=== PATIENT | female | born 1950 | race Caucasian/White ===

== ENCOUNTER 2018-10-17 11:40 | Emergency (ER) | payer MEDICARE, BC ==
--- NOTE | 2018-10-17 12:01 | Emergency Department Record ---
History of Present Illness - General Chief Complaint: General Stated Complaint: POST OP BLEED Time Seen by Provider: 10/17/18 11:51 Source: Patient, Family Mode of Arrival: Ambulatory Limitations: No limitations - History of Present Illness Initial comments: The patient is here due to having a R TKA yesterday at [facility] and was discharged today. When she got home the knee wound began bleeding from the mid portion of the wound and bled down the front of the leg. She denies any pain, fever, or any new issues. The patient denies being on blood thinners. Onset/Timin -: Hour(s) - Related Data Home Medications Medication Instructions Recorded Confirmed Last Taken Alprazolam 0.5 mg PO DAILY 10/17/18 10/17/18 Unknown Amlodipine Besylate [Norvasc] 5 mg PO DAILY 10/17/18 10/17/18 Unknown Escitalopram Oxalate [Lexapro] 10 mg PO DAILY 10/17/18 10/17/18 Unknown Hydrocodone/Acetaminophen [[place] 1 each PO Q6H 10/17/18 10/17/18 Unknown 5-325 Tablet] Spironolactone [Aldactone] 25 mg PO DAILY 10/17/18 10/17/18 Unknown Tizanidine HCl [Zanaflex] 4 mg PO DAILY 10/17/18 10/17/18 Unknown Allergies Allergy/AdvReac Type Severity Reaction Status Date / Time cefdinir [From Omnicef] AdvReac Mild ARM Unverified 09/21/15 10:41 NUMBNESS erythromycin base AdvReac Mild ARM Unverified 09/21/15 10:41 NUMBNESS levofloxacin [From Levaquin] AdvReac Mild ARM Unverified 09/21/15 10:41 NUMBNESS Penicillins AdvReac Mild ARM Unverified 09/21/15 10:41 NUMBNESS Sulfa (Sulfonamide AdvReac Mild ARM Unverified 09/21/15 10:41 Antibiotics) NUMBNESS Travel Screening - Travel/Exposure Within Last 30 Days Have you traveled within the last 30 days?: No Review of Systems Constitutional: Denies: Chills, Fever Eyes: Denies: Eye discharge ENT: Denies: Congestion Respiratory: Denies: Cough, Dyspnea Past Medical History - SOCIAL HISTORY Smoking Status: Current every day smoker Alcohol Use: None Drug Use: None - RESPIRATORY Hx Respiratory Disorders: No - CARDIOVASCULAR Hx Cardio Disorders: Yes Hx Irregular Heartbeat: Yes (afib) - NEURO Hx Neuro Disorders: No - GI Hx GI Disorders: No - Hx Genitourinary Disorders: No - ENDOCRINE Hx Endocrine Disorders: No - MUSCULOSKELETAL Hx Musculoskeletal Disorders: Yes Hx Arthritis: Yes Comment:: Lupus - PSYCH Hx Psych Problems: No - HEMATOLOGY/ONCOLOGY Hx Hematology/Oncology Disorders: No Family Medical History Any Significant Family History?: No Physical Exam - General General Appearance: Alert, Cooperative, No acute distress - Head Head exam: Atraumatic, Normocephalic - Eye Eye exam: Normal appearance, PERRL - Extremities Extremities exam: Joint swelling. negative: Normal inspection (There is an anterior R knee wound that is well approximated with a bandage in place. There is a punctate area of bleeding in the mid portion of the wound. There is no active bleeding, swelling, or erythema.), Full ROM, Tenderness Course Vital Signs 10/17/18 11:51 Temperature 97.9 F Pulse Rate [ 80 Pulse Ox Probe] Respiratory 20 Rate Blood Pressure 164/57 [Left Arm] Pulse Ox 95 - Reevaluation(s) Reevaluation #1: I did discuss the case with Dr. Wadsworth's PA and she does agree to the plan to keep a bandage in place for 2 days. She is to contact the office for any problems. 10/17/18 12:41 Disposition Disposition: Discharge Clinical Impression: Post-op bleeding Qualifiers: Surgical complication system/body Area: subcutaneous tissue Procedure type: dermatologic Qualified Code(s): L76.21 - Postprocedural hemorrhage of skin and subcutaneous tissue following a dermatologic procedure Disposition: Home, Self-Care Condition: (2) Stable Instructions: Acute Wound Care (ED) Additional Instructions: Please keep the bandage in place for [address] Wadsworth for any problems. Forms: Patient Portal Access Time of Disposition: 12:40 Quality - Quality Measures Quality Measures: N/A - Blood Pressure Screening View Details: Yes Does Patient Have Any of the Following: No Blood Pressure Classification: Hypertensive Reading Systolic Measurement: 164 Diastolic Measurement: 57 Screening for High Blood Pressure: < First Hypertensive BP, F/U Documented > [ G8950] First Hypertensive Follow-up Interventions: Referral to alternative/primary care provider.
== END 2018-10-17 12:55 | disposition home or self-care (01) ==
LOC: ER 11:40
DX: M96.830 Postprocedural hemorrhage of a musculoskeletal structure following a musculoskeletal system procedure (principal); Y65.8 Other specified misadventures during surgical and medical care; Y79.2 Prosthetic and other implants, materials and accessory orthopedic devices associated with adverse incidents; I48.91 Unspecified atrial fibrillation; F17.210 Nicotine dependence, cigarettes, uncomplicated
CPT/HCPCS: 99283

== ENCOUNTER 2018-10-26 15:04 | Inpatient (IN) | payer MEDICARE, BC ==
[2018-10-26] MEDS ORDERED: 0.9 % SODIUM CHLORIDE 1,000 ML BAG IV ONE (15:12)
[2018-10-26] MEDS ORDERED: ONDANSETRON HCL IV 4 MG/2 ML VIAL IVP ONE (15:12)
--- NOTE | 2018-10-26 15:17 | Emergency Department Record ---
History of Present Illness - General Chief complaint: Vomiting Stated complaint: CANT EAT,VOMITING Time Seen by Provider: 10/26/18 15:06 Source: Patient, Family Mode of Arrival: Ambulatory Limitations: No limitations - History of Present Illness Initial comments: 68 yo female presents with 7 days of not feeling well. Last Saturday she developed nausea. About three days ago she stated having vomiting with the nausea. She reports at this point she vomits even when she takes her medications. She has had one episode of diarrhea each of the last three days. She denies any fever. No severe abdominal pain. At times she has a due ache in the suprapubic area. She had knee replacement surgery last week. [facility] and told she might have a UTI. She was started on Nitrofurantoin MD complaint: Abdominal pain, Diarrhea, Nausea, Vomiting -: Week(s) (1) Description of Vomiting: Watery Description of Diarrhea: Other (dark) Associated Abdominal Pain: No Location: Other (No pain) Radiation: None Severity: Mild Quality: Other (no pain) Improves with: None Worsens with: Eating Context: Other Associated Symptoms: Loss of appetite, Nausea/vomiting - Related Data Home Medications Medication Instructions Recorded Confirmed Last Taken Apixaban [Eliquis] 5 mg PO BID 10/26/18 10/26/18 Unknown Azathioprine [Imuran] 50 mg PO BID 10/26/18 10/27/18 Unknown Benazepril HCl [Lotensin] 10 mg PO DAILY 10/26/18 10/26/18 Unknown Bupropion HCl 100 mg PO DAILY 10/26/18 10/27/18 Unknown Fluticasone/Salmeterol [Advair 1 each IH BID 10/26/18 10/26/18 Unknown 100-50 Diskus] Hydroxychloroquine Sulfate 200 mg PO BID 10/26/18 10/26/18 Unknown [Plaquenil] Montelukast Sodium [Singulair] 10 mg PO QHS 10/26/18 10/26/18 Unknown Nitrofurantoin Macrocrystal 100 mg PO BID 10/26/18 10/26/18 Unknown [Macrodantin] Amlodipine Besylate 5 mg PO DAILY 10/27/18 10/27/18 Unknown Metoprolol Succinate [Toprol Xl] 100 mg PO DAILY 10/27/18 10/27/18 Unknown Olmesartan/Hydrochlorothiazide 1 each PO DAILY 10/27/18 10/27/18 Unknown [Olmesartan-Hctz 40-12.5 mg Tab] Spironolactone 25 mg PO DAILY 10/27/18 10/27/18 Unknown Allergies Allergy/AdvReac Type Severity Reaction Status Date / Time cefdinir [From Omnicef] AdvReac Mild ARM Unverified 09/21/15 10:41 NUMBNESS erythromycin base AdvReac Mild ARM Unverified 09/21/15 10:41 NUMBNESS levofloxacin [From Levaquin] AdvReac Mild ARM Unverified 09/21/15 10:41 NUMBNESS Penicillins AdvReac Mild ARM Unverified 09/21/15 10:41 NUMBNESS Sulfa (Sulfonamide AdvReac Mild ARM Unverified 09/21/15 10:41 Antibiotics) NUMBNESS Review of Systems Constitutional: Reports: Malaise. Denies: Chills, Fever Eyes: Denies: Eye discharge, Eye pain, Photophobia, Vision change ENT: Denies: Congestion, Throat pain Respiratory: Denies: Cough, Dyspnea, Hemoptysis, Stridor, Wheezes Cardiovascular: Denies: Chest pain, Palpitations, Syncope Endocrine: Reports: Fatigue. Denies: Heat or cold intolerance, Polydipsia, Polyuria Gastrointestinal: Reports: Abdominal pain (mild suprapubic), Diarrhea, Nausea, Vomiting. Denies: Constipation, Hematemesis, Hematochezia, Melena Genitourinary: Denies: Dysuria, Urgency Musculoskeletal: Reports: Arthralgia (healing well without significant knee pain from surgery). Denies: Back pain, Joint swelling, Myalgia Neurological: Denies: Numbness, Weakness Psychiatric: Denies: Anxiety Hematological/Lymphatic: Denies: Easy bleeding, Easy bruising Past Medical History - SOCIAL HISTORY Smoking Status: Current every day smoker Drug Use: None - RESPIRATORY Hx Respiratory Disorders: No - CARDIOVASCULAR Hx Cardio Disorders: Yes Hx Irregular Heartbeat: Yes (afib) - NEURO Hx Neuro Disorders: No - GI Hx GI Disorders: No - Hx Genitourinary Disorders: No - ENDOCRINE Hx Endocrine Disorders: No - MUSCULOSKELETAL Hx Musculoskeletal Disorders: Yes Hx Arthritis: Yes Comment:: Lupus - PSYCH Hx Psych Problems: No - HEMATOLOGY/ONCOLOGY Hx Hematology/Oncology Disorders: No Physical Exam - General General Appearance: Alert, Oriented x3, Cooperative, No acute distress Limitations: No limitations - Head Head exam: Atraumatic, Normal inspection - Eye Eye exam: Normal appearance. negative: Conjunctival injection, Scleral icterus - ENT ENT exam: Normal exam, Mucous membranes moist Ear exam: Normal external inspection Nasal Exam: Normal inspection Mouth exam: Normal external inspection - Neck Neck exam: Normal inspection. negative: Lymphadenopathy - Respiratory Respiratory exam: Normal lung sounds bilaterally. negative: Respiratory distress - Cardiovascular Cardiovascular Exam: Regular rate, Normal rhythm, Normal heart sounds - GI/Abdominal GI/Abdominal exam: Soft, Normal bowel sounds, Other (very soft and non tender). negative: Distended, Guarding, Rebound, Rigid, Tenderness - Rectal Rectal exam: Deferred - exam: Deferred - Extremities Extremities exam: negative: Pedal edema - Back Back exam: Denies: CVA tenderness (R), CVA tenderness (L) - Neurological Neurological exam: Alert, Oriented X3 - Psychiatric Psychiatric exam: Normal affect, Normal mood - Skin Skin exam: Dry, Intact, Normal color, Warm Course - Reevaluation(s) Reevaluation #1: 10/26/18 15:38 The CBC was reviewed WBC is 19.7 10/26/18 15:48 The CMP was reviewed The CR is normal The HCO3 is 21 The Lipase is 93 10/26/18 17:[address] scan result was reviewed. The findings suggest duodenitis or PUD. No other acute process. Pulmonary nodules recommend follow up in one year and Left ovarian cyst with recommend Ultrasound in one year. This was discussed with the patient regarding the need to follow up No vomiting in the ED to this point 10/26/18 17:23 The UA is completely negative without signs of infection 10/26/18 18:18 No vomiting or diarrhea in the ED to this point. The lab called with a late entry sodium level Her Na is 116. She will be admitted for hyponatremia, vomiting 10/26/18 18:29 The admission was discussed with Cha Fulton NP regarding the NV, hyponatremia 10/26/18 18:36 Medical Decision Making - Lab Data Result diagrams: 10/26/18 15:15 10/27/18 06:25 Disposition Disposition: Admit Clinical Impression: Duodenitis, Hyponatremia, Vomiting, Diarrhea Abdominal pain Qualifiers: Abdominal location: unspecified location Qualified Code(s): R10.9 - Unspecified abdominal pain Disposition: Still a Patient at [facility] Decision to Admit: Admit from ER Decision to Admit Date: 10/26/18 Decision to Admit Time: 18:31 Condition: (1) Good Time of Disposition: 18:31 Quality - Quality Measures Quality Measures: N/A - Blood Pressure Screening Does Patient Have Any of the Following: Active Dx of HTN Blood Pressure Classification: Hypertensive Reading Systolic Measurement: 133 Diastolic Measurement: 99 Screening for High Blood Pressure: Patient Exclusion, Hx of HTN [G9744]
[2018-10-26 15:26] LABS: HEMATOCRIT 33.5 % (35.0-47.0); HEMOGLOBIN 12.4 gm/dl (11.6-16.0); MEAN CELL VOLUME 94.1 fl (81-97); MEAN CORPUSCULAR HEMOGLOBIN 34.8 pg (27-33); MEAN PLATELET VOLUME 8.4 fl (7.4-10.4); PLATELET COUNT 477 K/uL (130-400); RED BLOOD COUNT 3.56 M/uL (3.80-5.40); RED CELL DISTRIBUTION WIDTH 13.1 % (11.5-14.5); WHITE BLOOD COUNT W/O DIFF 19.7 K/uL (4.2-12.2)
[2018-10-26 15:36] LABS: BLOOD UREA NITROGEN 22 mg/dL (8-23); CREATININE 0.9 mg/dL (0.5-0.9); EST GLOMERULAR FILTRATION RATE > 60 mL/min
[2018-10-26 15:37] LABS: LIPASE 93 U/L (13-60); TOTAL PROTEIN 8.2 g/dL (6.6-8.7)
[2018-10-26] MEDS ORDERED: 0.9 % SODIUM CHLORIDE 1000ML 1,000 ML IV ONE (15:38)
[2018-10-26 15:39] LABS: GLUCOSE,RANDOM 105 mg/dL (74-109)
[2018-10-26 15:41] LABS: ALB/GLOB RATIO 1.1 (1.1-1.8); ALBUMIN 4.3 g/dL (4.0-5.0); ALKALINE PHOSPHATASE 61 U/L (35-104); ALT/SGPT 41 U/L (<33); AST/SGOT 35 U/L (10.0-35.0)
[2018-10-26 16:53] LABS: URINE APPEARANCE CLEAR; URINE BILIRUBIN NEGATIVE (NEGATIVE); URINE BLOOD TRACE-I (NEGATIVE); URINE COLOR YELLOW; URINE GLUCOSE (UA) NEGATIVE (NEGATIVE); URINE KETONE TRACE (NEGATIVE); URINE LEUKOCYTE ESTERASE NEGATIVE (NEGATIVE); URINE NITRITE NEGATIVE (NEGATIVE); URINE PROTEIN NEGATIVE (NEGATIVE); URINE UROBILINOGEN 0.2 E.U./dL (0.20 - 1.00)
[2018-10-26 17:07] LABS: URINE EPITHELIAL CELLS 0 - 2 (FEW); URINE RBC 0 - 2 (NONE SEEN); URINE WBC 0 - 2 (0-2/hpf)
[2018-10-26] MEDS ORDERED: PANTOPRAZOLE SODIUM IV 40 MG VIAL IVP ONE (17:35)
[2018-10-26] MEDS ORDERED: MORPHINE SULFATE 10 MG/ML VIAL IVP ONE ×2 (17:35→18:22)
[2018-10-26] MEDS ORDERED: ONDANSETRON HCL IV 4 MG/2 ML VIAL IVP PRN (19:58)
[2018-10-26] MEDS ORDERED: DIPHENHYDRAMINE HCL 25 MG CAPSULE PO PRN (20:46)
[2018-10-26] MEDS: 0.9 % SODIUM CHLORIDE 1000ML 1,000 ML IV PRN (20:57)
[2018-10-26] MEDS: MONTELUKAST SODIUM 10MG TABLET PO SCH (21:53)
[2018-10-26] MEDS ORDERED: METOPROLOL TART 50 MG TABLET PO SCH (22:00)
[2018-10-26] MEDS: IBUPROFEN 400 MG TABLET PO PRN (23:24)
[2018-10-27] MEDS: MORPHINE SULFATE 10 MG/ML VIAL IVP PRN ×2 (00:52→07:49)
[2018-10-27 06:57] LABS: BLOOD UREA NITROGEN 19 mg/dL (8-23); CREATININE 0.8 mg/dL (0.5-0.9); EST GLOMERULAR FILTRATION RATE > 60 mL/min; GLUCOSE,RANDOM 97 mg/dL (74-109)
[2018-10-27] MEDS: PANTOPRAZOLE SODIUM IV 40 MG VIAL IV SCH (07:02)
[2018-10-27] MEDS: 0.9 % SODIUM CHLORIDE 1000ML 1,000 ML IV PRN ×2 (07:02→16:54)
--- NOTE | 2018-10-27 07:45 | CT SCAN REPORT ---
EXAM: CT OF THE ABDOMEN AND PELVIS WITH CONTRAST HISTORY: NAUSEA, VOMITING AND DIARRHEA SINCE SATURDAY. TECHNIQUE: Standard CT imaging of the abdomen and pelvis was obtained utilizing intravenous contrast. Coronal and sagittal reformations are provided. Comparison: 02/05/18. FINDINGS: There is a 5 mm noncalcified nodule in the right middle lobe, and a 5 mm noncalcified nodule in the right lower lobe. These are stable in size from prior examination on 02/05/18. Nodular contour to the liver suggesting cirrhosis. No calcified stones within the gallbladder. No pericholecystic edema. The common bile duct is not dilated. The pancreas is unremarkable. The spleen is normal in size. Nodular thickening of both adrenal glands similar to prior examination. Several small calcifications in the left kidney appear to be vascular, though one or two may represent nonobstructing calculi. There is no hydronephrosis. The kidneys otherwise appear normal. Symmetric excretion of contrast on delayed imaging. There is mild wall thickening of the proximal duodenum with mild adjacent fat stranding. These findings are new from prior examination. There is no bowel dilatation. The colon and appendix appear normal. Several coarse calcifications in the uterus likely secondary to fibroids. There is a 1.4 cm left ovarian cyst. The bladder is unremarkable. There is a tiny fat containing left inguinal hernia. No mesenteric or retroperitoneal adenopathy. The aorta and iliac arteries are heavily calcified. The main portal veins are patent. The IVC is unremarkable. The aorta is not aneurysmal. No free fluid or free air is seen. There is severe osteoarthritis at the right hip. No destructive osseous lesion is identified. IMPRESSION: 1. FINDINGS OF DUODENITIS, THOUGH THE DIFFERENTIAL INCLUDES PEPTIC ULCER DISEASE. 2. CIRRHOTIC APPEARING LIVER. 3. 1.4 CM LEFT OVARIAN CYST. FOLLOW-UP PELVIC ULTRASOUND IS RECOMMENDED IN ONE YEAR. LIKELY A FIBROID UTERUS. 4. A FEW PULMONARY NODULES IN THE RIGHT LUNG BASE MEASURE UP TO 5 MM, STABLE FROM 02/05/18. FOLLOW-UP LOW DOSE CHEST CT IS RECOMMENDED IN TWELVE MONTHS. JOB NUMBER: [id number] [facility]
[2018-10-27] MEDS: AMLODIPINE BESYLATE 5MG TAB PO SCH (09:42)
[2018-10-27] MEDS: METOPROLOL SUCC 50 MG TABLET PO SCH (09:43)
[2018-10-27] MEDS: HYDROXYCHLOROQUINE SULFATE 200 MG TABLET PO SCH ×2 (09:43→21:23)
[2018-10-27] MEDS: BUPROPION HCL 100 MG PO SCH ×2 (09:59→14:30)
[2018-10-27] MEDS: AZATHIOPRINE 50 MG PO SCH ×3 (09:59→21:22)
[2018-10-27 10:09] LABS: HEMATOCRIT 30.2 % (35.0-47.0); HEMOGLOBIN 10.6 gm/dl (11.6-16.0); MEAN CELL VOLUME 97.1 fl (81-97); MEAN CORPUSCULAR HGB CONC 35.1 g/dl (32-36); PLATELET COUNT 378 K/uL (130-400); RED BLOOD COUNT 3.11 M/uL (3.80-5.40); RED CELL DISTRIBUTION WIDTH 13.4 % (11.5-14.5); WHITE BLOOD COUNT W/O DIFF 15.9 K/uL (4.2-12.2)
[2018-10-27] MEDS: HYDROCODONE/APAP 5/325MG TABLET PO PRN ×3 (12:17→17:55)
[2018-10-27] MEDS: ALPRAZOLAM 0.25 MG TABLET PO PRN ×2 (12:18→20:36)
[2018-10-27] MEDS ORDERED: HYDROCODONE/APAP 5/325MG TABLET PO PRN (13:50)
--- NOTE | 2018-10-27 13:59 | History & Physical ---
History of Present Illness - Date of Service Date of Service for History & Physical: 10/27/18 - History of Present Illness Admitting Diagnosis: hyponatremia History of Present Illness: Dayami Cruz is a 68 y/o female presenting to ED for 7 day history of nausea followed 3 days later by vomiting and diarrhea. She reports sinc3e her knee surgery has had very dark stools. Denies any focal abdominal pain or fever. She was seen in a [facility] about 3 days ago for this and diagnosed with a UTI and prescribed Macrobid. Of note she is S/P right TKR by Dr Wadsworth. Past medical history includes current every day smoker, a-fib, OA, lupus, autoimmune hepatitis. In ED WBC 19.7, Hgb 12.4, platelet 477, neutrophils 477, NA 116, total bili 1.2 , AST 35, ALT 35, lipse 93. U/A unremarkable. CT abdomen/pelvis- duodenitis and PUD, cirrhotic liver, and 1.4cm left ovarian cyst with fibroid uterus. 10/27/18- Resting comfortably in bed. Reports she is feeling much better after receiving IV fluids as well as IV protonix. She denies any previous history of intestinal or stomach ulcers, has not had any mohamud blood in her stools but admits to recent black stools. She also admits to having a history of hyponatremia and her PCP is aware. Is usually asymptomatic and is checked periodically, has never been worked up for cause. Reports still having right knee pain but is overall achy per her usual due to lupus. Usually takes Sal[place] 5/ 325 1/2 as needed for pain at home but is having increased aches for the past several days. PCP: Dr Martinez Orthopedics: Dr. Wadsworth Travel Screening - Travel/Exposure Within Last 30 Days Have you traveled within the last 30 days?: No - Travel/Exposure Within Last Year Have you traveled outside the [place] in the last year?: No - Additonal Travel Details Have you been exposed to anyone with a communicable illness?: No - Travel Symptoms Symptom Screening: None, Vomiting, Stomach Pain Review of Systems Constitutional: Reports: Malaise. Denies: Chills, Fever Eyes: Denies: Eye discharge, Eye pain, Photophobia, Vision change ENT: Denies: Congestion, Throat pain Respiratory: Denies: Cough, Dyspnea, Hemoptysis, Stridor, Wheezes Cardiovascular: Denies: Chest pain, Palpitations, Syncope Endocrine: Reports: Fatigue. Denies: Heat or cold intolerance, Polydipsia, Polyuria Gastrointestinal: Denies: Abdominal pain (mild suprapubic), Constipation, Diarrhea, Hematemesis, Hematochezia, Melena, Nausea, Vomiting Genitourinary: Denies: Dysuria, Urgency Musculoskeletal: Reports: Arthralgia (healing well without significant knee pain from surgery). Denies: Back pain, Joint swelling, Myalgia Neurological: Denies: Numbness, Weakness Psychiatric: Denies: Anxiety Hematological/Lymphatic: Denies: Easy bleeding, Easy bruising Past Medical History - SOCIAL HISTORY Smoking Status: Current every day smoker - RESPIRATORY Hx Respiratory Disorders: No Hx Asthma: Yes Hx Bronchitis: Yes - CARDIOVASCULAR Hx Cardio Disorders: Yes Hx Irregular Heartbeat: Yes (afib) - NEURO Hx Neuro Disorders: No - GI Hx GI Disorders: No Hx Hepatitis/Jaundice: Yes (auto-immune hepatitis) - Hx Genitourinary Disorders: No Hx UTI: Yes - ENDOCRINE Hx Endocrine Disorders: No - MUSCULOSKELETAL Hx Musculoskeletal Disorders: Yes Hx Arthritis: Yes Comment:: Lupus - PSYCH Hx Psych Problems: No Hx Anxiety: Yes Hx Depression: Yes - HEMATOLOGY/ONCOLOGY Hx Hematology/Oncology Disorders: No Family Medical History Any Significant Family History?: No Hx Cancer: Mother, Brother/Sister Hx Diabetes: Mother, Grandparents Hx Heart Disease: Father Hx HTN: Mother Hx Stroke: Mother, Grandparents H&P Meds/Allergies - Allergies Allergies: Allergies Allergy/AdvReac Type Severity Reaction Status Date / Time cefdinir [From Omnicef] AdvReac Mild ARM Unverified 09/21/15 10:41 NUMBNESS erythromycin base AdvReac Mild ARM Unverified 09/21/15 10:41 NUMBNESS levofloxacin [From Levaquin] AdvReac Mild ARM Unverified 09/21/15 10:41 NUMBNESS Penicillins AdvReac Mild ARM Unverified 09/21/15 10:41 NUMBNESS Sulfa (Sulfonamide AdvReac Mild ARM Unverified 09/21/15 10:41 Antibiotics) NUMBNESS - Home Medications Home Medications Medication Instructions Recorded Confirmed Last Taken Azathioprine [Imuran] 50 mg PO BID 10/26/18 10/27/18 Unknown Bupropion HCl 100 mg PO DAILY 10/26/18 10/27/18 Unknown Fluticasone/Salmeterol [Advair 1 each IH BID 10/26/18 10/26/18 Unknown 100-50 Diskus] Hydroxychloroquine Sulfate 200 mg PO BID 10/26/18 10/26/18 Unknown [Plaquenil] Montelukast Sodium [Singulair] 10 mg PO QHS 10/26/18 10/26/18 Unknown Amlodipine Besylate 5 mg PO DAILY 10/27/18 10/27/18 Unknown Metoprolol Succinate [Toprol Xl] 100 mg PO DAILY 10/27/18 10/27/18 Unknown Olmesartan/Hydrochlorothiazide 1 each PO DAILY 10/27/18 10/27/18 Unknown [Olmesartan-Hctz 40-12.5 mg Tab] Spironolactone 25 mg PO BID 10/27/18 10/27/18 Unknown Tizanidine HCl [Zanaflex] 2 mg PO QHS 10/27/18 10/27/18 Unknown - Active Medications Active Medications: Current Medications Hydrocodone Bitart/Acetaminophen (Sal[place] 5mg/325mg) 0.5 each PO NOW PRN PRN Reason: PAIN - MODERATE (5-7) Hydrocodone Bitart/Acetaminophen ([place] 5mg/325mg) 1 each PO Q4H PRN PRN Reason: PAIN - MILD TO MODERATE (1-7) Alprazolam (Xanax) 0.25 mg PO TID PRN PRN Reason: ANXIETY Last Admin: 10/27/18 12:18 Dose: 0.25 mg Amlodipine Besylate (Norvasc) 5 mg PO DAILY [facility] Last Admin: 10/27/18 09:42 Dose: 5 mg Diphenhydramine HCl (Benadryl Capsule) 50 mg PO QHS PRN PRN Reason: SLEEP Last Admin: 10/26/18 21:53 Dose: 50 mg Hydroxychloroquine Sulfate (Plaquenil) 200 mg PO BID [facility] Last Admin: 10/27/18 09:43 Dose: 200 mg Sodium Chloride () 1,000 mls @ 75 mls/hr IV .[id number] PRN PRN Reason: LARGE VOLUME IV Ibuprofen (Motrin 400mg) 800 mg PO Q8H PRN PRN Reason: PAIN - MILD TO MODERATE (1-7) Last Admin: 10/26/18 23:24 Dose: 800 mg Metoprolol Succinate (Toprol Xl) 100 mg PO DAILY [facility] Last Admin: 10/27/18 09:43 Dose: 100 mg Montelukast Sodium (Singulair) 10 mg PO QHS [facility] Last Admin: 10/26/18 21:53 Dose: 10 mg Non-Formulary Medication (Azathioprine [Imuran]) 50 mg PO BID [facility] Last Admin: 10/27/18 09:59 Dose: Not Given Non-Formulary Medication (Bupropion Hcl [Bupropion Hcl]) 100 mg PO DAILY [facility] Last Admin: 10/27/18 09:59 Dose: Not Given Ondansetron HCl (Zofran) 4 mg IVP Q4H PRN PRN Reason: NAUSEA Pantoprazole Sodium (Protonix Iv) 40 mg IV [facility]ILY[facility] Last Admin: 10/27/18 07:02 Dose: 40 mg Tizanidine HCl (Tizanidine Hcl) 2 mg PO QHS [facility] Physical Exam - Vital Signs Vital Signs: Vital Signs - Last 24 Hrs Temp Pulse Pulse Resp BP BP Pulse Ox 10/27/18 11:23 97.5 F L 120/65 10/27/18 09:00 97.5 F L 79 18 120/65 96 10/27/18 05:00 97.9 F 78 20 109/62 97 10/26/18 21:00 78 20 10/26/18 19:58 98.0 F 78 20 119/67 96 10/26/18 19:34 92 H 18 133/99 99 10/26/18 19:19 91 H 20 114/67 94 L 10/26/18 15:08 97.8 F 91 H 20 127/106 97 - General General Appearance: Alert, Oriented x3, Cooperative, No acute distress Limitations: No limitations - Head Head exam: Atraumatic, Normal inspection - Eye Eye exam: Normal appearance. negative: Conjunctival injection, Scleral icterus - ENT ENT exam: Normal exam, Mucous membranes moist Ear exam: Normal external inspection Nasal Exam: Normal inspection Mouth exam: Normal external inspection - Neck Neck exam: Normal inspection. negative: Lymphadenopathy - Respiratory Respiratory exam: Normal lung sounds bilaterally. negative: Respiratory distress - Cardiovascular Cardiovascular Exam: Regular rate, Normal rhythm, Normal heart sounds Peripheral Pulses: 2+: Dorsalis Pedis (R), Dorsalis Pedis (L) - GI/Abdominal GI/Abdominal exam: Soft, Normal bowel sounds, Other (very soft and non tender). negative: Distended, Guarding, Rebound, Rigid, Tenderness - Rectal Rectal exam: Deferred - exam: Deferred - Extremities Extremities exam: negative: Pedal edema - Back Back exam: Denies: CVA tenderness (R), CVA tenderness (L) - Neurological Neurological exam: Alert, Oriented X3 - Psychiatric Psychiatric exam: Normal affect, Normal mood - Skin Skin exam: Dry, Intact, Normal color, Warm (right knee joint, tender to palpation, soft tissue swellingt, scattered ecchymosis) Results - Labs Result Diagrams: 10/27/18 06:25 10/27/18 06:25 Labs Last 24 Hours: Laboratory Results - last 24 hr 10/26/18 10/26/18 10/26/18 15:15 15:15 16:45 WBC 19.7 H RBC 3.56 L Hgb 12.4 Hct 33.5 L MCV 94.1 MCH 34.8 H MCHC 37.0 H RDW 13.1 Plt Count 477 H MPV 8.4 Neutrophils % 82.0 H Band Neutrophils % 1.0 Eosinophils % Not Reportable Basophils % Not Reportable Lymphocytes 9.0 L Monocytes 8.0 Basophils 0.0 Eosinophil Count 0.0 Sodium 116 L* Potassium 4.4 Chloride 79 L Carbon Dioxide 21.0 L Anion Gap 16.0 BUN 22 Creatinine 0.9 Estimated GFR > 60 Random Glucose 105 Calcium 9.0 Total Bilirubin 1.20 H AST 35 ALT 41 H Alkaline Phosphatase 61 Total Protein 8.2 Albumin 4.3 Globulin 3.9 Albumin/Globulin Ratio 1.1 Lipase 93 H Urine Color Yellow Urine Appearance Clear Urine pH 6.5 Ur Specific [place] <= 1.005 Urine Protein Negative Urine Glucose (UA) Negative Urine Ketones Trace H Urine Blood Trace-i Urine Nitrite Negative Urine Bilirubin Negative Urine Urobilinogen 0.2 Ur Leukocyte Esterase Negative Urine RBC 0 - 2 Urine WBC 0 - 2 Ur Epithelial Cells 0 - 2 10/27/18 10/27/18 06:25 06:25 WBC 15.9 H RBC 3.11 L Hgb 10.6 L Hct 30.2 L MCV 97.1 H MCH 34.0 H MCHC 35.1 RDW 13.4 Plt Count 378 MPV 10.0 Neutrophils % 80.0 Band Neutrophils % Eosinophils % Not Reportable Basophils % Not Reportable Lymphocytes 14.0 L Monocytes 6.0 Basophils Eosinophil Count Sodium 122 L Potassium 4.1 Chloride 91 L Carbon Dioxide 21.0 L Anion Gap 10.0 BUN 19 Creatinine 0.8 Estimated GFR > 60 Random Glucose 97 Calcium 8.3 L Total Bilirubin AST ALT Alkaline Phosphatase Total Protein Albumin Globulin Albumin/Globulin Ratio Lipase Urine Color Urine Appearance Urine pH Ur Specific [place] Urine Protein Urine Glucose (UA) Urine Ketones Urine Blood Urine Nitrite Urine Bilirubin Urine Urobilinogen Ur Leukocyte Esterase Urine RBC Urine WBC Ur Epithelial Cells VTE H&P Assessment - Risk for VTE Risk for VTE: Yes Risk Level: Moderate Risk Assessment Date: 10/27/18 Risk Assessment Time: 14:26 VTE Orders Placed or Will Be Placed: Yes Plan - Inpatient Certification Inpatient Certification: Admit to inpatient care: Based on my medical assessment, after consideration of patient's risk factors (age, co-morbidities and patient presenting symptoms and acuity), I expect that this patient will remain in the hospital greater than or equal to two midnights and that the services needed warrant inpatient care because: Patient Risk Factors: [recent joint surgery, elevated WBC, hyponatremia needing IV replacement] Estimated length of stay: [48-72 hours] The patient may reasonably be expected to be discharged or transferred to a hospital within 96 hours after admission to [facility]. Services needed: [nursing] Post hospital care (if known): [] I certify that my determination is in accordance with my understanding of Medicare requirements for reasonable and necessary inpatient services. 10/27/18 14:08 - Detailed Diagnosis and Plan (1) Duodenitis Current Visit: Yes Status: Acute Base Code: K29.80 - DUODENITIS WITHOUT BLEEDING Comment: 10/27/18 - CT abdomen/pelvis duodenitis, PUD - Abdominal pain resolved this am - Tolerating advanced diet to soft then regluar - Improved with Protonix 40mg IVP QD - Zofran 4mg IVP Q 4hr PRN for nausea - H-Pylori antigen today due to continued elevated WBC - Stool for OBx3 (2) Leukocytosis Current Visit: Yes Status: Acute Base Code: D72.829 - ELEVATED WHITE BLOOD CELL COUNT, UNSPECIFIED Comment: 10/27/18 - WBC 19.7-->15.9, afebrile - U/A unremarkable, will send for culture - BC x 2 - CXR - Right knee x-ray r/o osteomyelitis - CBC in am (3) Hyponatremia Current Visit: Yes Status: Acute Base Code: E87.1 - HYPO-OSMOLALITY AND HYPONATREMIA Comment: 10/27/18 - NA116-->122, patient reports history of hyponatremia. Records review NA 129 , 07/06/18 - 0.9% 100ml/hr, decreased to 75ml/hr for peripheral edema - BMP in am - No seizure activity or cognitive impairment (4) Chronic pain Current Visit: Yes Status: Acute Base Code: G89.29 - OTHER CHRONIC PAIN Comment: 10/27/18 - History of lupus, usually pain controlled using Sal[place] 5/325 1/2 tab as needed - Pain exacerbation and right knee pain s/p total knee replacement - Increase [place] 5/325 1 tab Q 4hr PRN - Continue Imuran 50mg BID, Plaquenil 200mg BID, Tizanidine 2mg QD (5) HTN (hypertension) Current Visit: Yes Status: Acute Base Code: I10 - ESSENTIAL (PRIMARY) HYPERTENSION Comment: 10/27/18 - Norvas 5mg QD (6) Atrial fibrillation Current Visit: Yes Status: Acute Base Code: I48.91 - UNSPECIFIED ATRIAL FIBRILLATION Comment: 10/27/18 - Toprol XL 100mg QD (7) DVT prophylaxis Current Visit: Yes Status: Acute Base Code: [id number] - Comment: 10/27/18 - Nursing to encourage frequent ambulation - Will initiate VTE prophylaxis if admitted> 24 hours (8) Full code status Current Visit: Yes Status: Acute Base Code: Z78.9 - OTHER SPECIFIED HEALTH STATUS Comment: 10/27/18
[2018-10-27] MEDS: SPIRONOLACTONE 25 MG TAB PO SCH ×2 (14:36→21:22)
[2018-10-27] MEDS: HCTZ PO SCH (14:37)
[2018-10-27] MEDS: OLMESARTAN PO SCH (14:37)
[2018-10-27] MEDS: IBUPROFEN 400 MG TABLET PO PRN (20:40)
[2018-10-27] MEDS: CEPHALEXIN 500 MG CAPSULE PO SCH (21:22)
[2018-10-27] MEDS: MONTELUKAST SODIUM 10MG TABLET PO SCH (21:24)
[2018-10-27] MEDS ORDERED: MIRTAZAPINE 15 MG TABLET PO SCH (22:00)
[2018-10-27] MEDS ORDERED: TIZANIDINE HCL 4 MG TABLET PO SCH (22:00)
--- NOTE | 2018-10-28 05:05 | RADIOLOGY REPORT ---
EXAM: CHEST, TWO VIEWS HISTORY: ELEVATED SERUM WHITE BLOOD CELL COUNT TEN DAYS POST TOTAL KNEE ARTHROPLASTY. TECHNIQUE: Upright PA and lateral views of the chest were obtained. Comparison: CT chest with contrast dated 03/05/18. FINDINGS: The heart is not enlarged and the pulmonary vasculature is nondilated. The thoracic aorta is tortuous and atherosclerotic. No confluent air space opacity is seen. On the lateral view there is minor linear scarring versus atelectasis at the anterior lung base level without corresponding abnormality on the frontal view. The lungs and pleural spaces are otherwise clear. Mild degenerative end plate changes scattered throughout the visualized spine. IMPRESSION: NO RADIOGRAPHIC EVIDENCE OF ACUTE CARDIOPULMONARY DISEASE. MINOR LINEAR SCARRING VERSUS ATELECTASIS AT THE ANTERIOR LUNG BASE LEVEL SEEN ON THE LATERAL VIEW ONLY. JOB NUMBER: [id number] MTDD
--- NOTE | 2018-10-28 05:09 | RADIOLOGY REPORT ---
EXAM: RIGHT KNEE, THREE VIEWS HISTORY: RIGHT KNEE SWELLING TEN DAYS POST TOTAL KNEE ARTHROPLASTY. TECHNIQUE: AP, lateral, and sunrise views of the right knee were obtained. Comparison: Four views of the right knee dated 12/20/17. FINDINGS: There has been interval total knee arthroplasty with the metallic prosthetic components appearing well seated. No complicating fracture or dislocation. No bone destruction or periosteal reaction. There is anterior soft tissue swelling. A tiny amount of gas is noted near the anterior joint line as seen on the lateral view. IMPRESSION: STATUS POST TOTAL RIGHT KNEE ARTHROPLASTY WITHOUT COMPLICATING FRACTURE, DISLOCATION, NOR BONE DESTRUCTION. 2. ANTERIOR SOFT TISSUE SWELLING. TINY COLLECTION OF GAS NEAR THE ANTERIOR JOINT LINE SEEN ON THE LATERAL VIEW. JOB NUMBER: [id number] [facility]
[2018-10-28] MEDS: 0.9 % SODIUM CHLORIDE 1000ML 1,000 ML IV PRN (05:24)
[2018-10-28] MEDS: CEPHALEXIN 500 MG CAPSULE PO SCH ×2 (06:10→14:20)
[2018-10-28] MEDS: PANTOPRAZOLE SODIUM IV 40 MG VIAL IV SCH (06:10)
[2018-10-28] MEDS: HYDROCODONE/APAP 5/325MG TABLET PO PRN ×3 (06:10→16:26)
[2018-10-28 06:57] LABS: HEMATOCRIT 28.6 % (35.0-47.0); MEAN CELL VOLUME 97.6 fl (81-97); MEAN CORPUSCULAR HEMOGLOBIN 34.1 pg (27-33); MEAN PLATELET VOLUME 8.7 fl (7.4-10.4); PLATELET COUNT 290 K/uL (130-400); RED BLOOD COUNT 2.93 M/uL (3.80-5.40); RED CELL DISTRIBUTION WIDTH 13.4 % (11.5-14.5)
[2018-10-28] MEDS: SPIRONOLACTONE 25 MG TAB PO SCH (09:37)
[2018-10-28] MEDS: AMLODIPINE BESYLATE 5MG TAB PO SCH (09:37)
[2018-10-28] MEDS: METOPROLOL SUCC 50 MG TABLET PO SCH (09:37)
[2018-10-28] MEDS: HYDROXYCHLOROQUINE SULFATE 200 MG TABLET PO SCH (09:37)
[2018-10-28] MEDS: BUPROPION HCL 100 MG PO SCH (09:38)
[2018-10-28] MEDS: OLMESARTAN PO SCH (09:39)
[2018-10-28] MEDS: HCTZ PO SCH (09:39)
[2018-10-28] MEDS: AZATHIOPRINE 50 MG PO SCH (09:39)
[2018-10-28 12:34] LABS: STOOL FOR OCCULT BLOOD #1 POSITIVE (NEGATIVE); STOOL FOR OCCULT BLOOD #2 POSITIVE (NEGATIVE); STOOL FOR OCCULT BLOOD #3 POSITIVE (NEGATIVE)
--- NOTE | 2018-10-28 17:49 | Discharge Note ---
VTE H&P Assessment - Risk for VTE Risk for VTE: Yes Risk Level: Moderate Risk Assessment Date: 10/27/18 Risk Assessment Time: 14:26 VTE Orders Placed or Will Be Placed: No VTE Reason for No Prophylaxis: Contraindicated (GI bleed) Discharge Medications - Discharge Medications Prescriptions: Cephalexin [Keflex] 500 mg PO Q8H #21 capsule Ferrous Sulfate [Iron] 325 mg PO DAILY #30 tab Olmesartan Medoxomil [Benicar] 40 mg PO DAILY #30 tablet Pantoprazole Sodium [Protonix] 40 mg PO BID #60 tablet. Home Medications: Ambulatory Orders Alprazolam 0.25 mg PO TID PRN 10/17/18 [Last Taken Unknown] Escitalopram Oxalate [Lexapro] 10 mg PO DAILY 10/17/18 [Last Taken Unknown] Hydrocodone/Acetaminophen [[place] 5-325 Tablet] 0.5 each PO TID PRN 10/17/18 [ Last Taken Unknown] Azathioprine [Imuran] 50 mg PO BID 10/26/18 [Last Taken Unknown] Bupropion HCl 100 mg PO DAILY 10/26/18 [Last Taken Unknown] Fluticasone/Salmeterol [Advair 100-50 Diskus] 1 each IH BID 10/26/18 [Last Taken Unknown] Hydroxychloroquine Sulfate [Plaquenil] 200 mg PO BID 10/26/18 [Last Taken Unknown] Montelukast Sodium [Singulair] 10 mg PO QHS 10/26/18 [Last Taken Unknown] Amlodipine Besylate 5 mg PO DAILY 10/27/18 [Last Taken Unknown] Metoprolol Succinate [Toprol Xl] 100 mg PO DAILY 10/27/18 [Last Taken Unknown] Spironolactone 25 mg PO BID 10/27/18 [Last Taken Unknown] Tizanidine HCl [Zanaflex] 2 mg PO QHS 10/27/18 [Last Taken Unknown] Cephalexin [Keflex] 500 mg PO Q8H #21 capsule 10/28/18 [Last Taken Unknown] Ferrous Sulfate [Iron] 325 mg PO DAILY #30 tab 10/28/18 [Last Taken Unknown] Olmesartan Medoxomil [Benicar] 40 mg PO DAILY #30 tablet 10/28/18 [Last Taken Unknown] Pantoprazole Sodium [Protonix] 40 mg PO BID #60 tablet. 10/28/18 [Last Taken Unknown] Discharge Note - Date Date of Discharge Note: 10/28/18 Disposition: Home, Self-Care Condition: (1) Good Additional Instructions: Call your doctor for the next available follow up appointment Return to the ER for a recheck if worse, vomiting, fever, not eating or drinking , or any new concerns or questions Take the prescriptions provided as directed You have been referred to GI to follow up your CT findings Additionally, you will need to have a CT in one year for the lung nodules and an US in one year for the left ovarian cyst Follow up Dr. Martinez or his partner Dr Meek in one week please obtain outpatient lab work on and saturday Hg/HCT and BMP No aspirin or motrin or aleve use norco or plain tylenol for pain Forms: Patient Portal Access
--- NOTE | 2018-10-29 08:13 | US VENOUS DOPPLER REPORT ---
EXAM: RIGHT LOWER EXTREMITY VENOUS DOPPLER ULTRASOUND HISTORY: RIGHT LEG PAIN WITH BRUISING. STATUS POST KNEE REPLACEMENT SURGERY ONE WEEK AGO. TECHNIQUE: Duplex Doppler evaluation of the right lower extremity deep venous system was performed in the standard fashion. Comparison: None. FINDINGS: The right lower extremity deep venous system is well visualized from the external iliac vein through the calf veins. There is normal flow, phasicity , augmentation and compression throughout. The left external iliac vein, common femoral vein, and greater saphenous vein are also normal. IMPRESSION: NO EVIDENCE FOR DVT WITHIN THE RIGHT LOWER EXTREMITY. JOB NUMBER: [id number] [facility]
--- NOTE | 2018-10-29 08:50 | Discharge Summary ---
DATE: 10/28/2018 at 5:12 p.m. DISCHARGE DIAGNOSES: 1. Abdominal pain, nausea, and diarrhea, resolved. 2. Duodenitis, resolving. 3. GI bleed, Hemoccult-positive stools. 4. Anemia secondary to GI bleed. Hemoglobin is 10.0. 5. Hyponatremia. Sodium is 122. 6. Status post right knee replacement approximately 2 weeks ago. The patient is to start physical therapy for the right knee replacement, and followup appointment with Dr. Wadsworth is 11/28/2018. 7. Hypertension. 8. Rheumatoid arthritis. 9. Urinary tract infection. She is on Keflex 500 mg 3 times a day for both the urinary tract infection and duodenitis. I will give her 7 more days of that. 10. Lupus and arthritis. 11. Anxiety. 12. Status post autoimmune hepatitis. 13. History of atrial fibrillation but is not on any anticoagulants or any medications for it at this time. ATTENDING PHYSICIAN: Odilon Martin DO REASON FOR HOSPITALIZATION: The patient is a 68-year-old with nausea, vomiting, diarrhea, and abdominal pain. Seen in the emergency department by Dr. Engle with a CT scan showing duodenitis and a urinary tract infection. Placed in the hospital for pain control, IV fluids. She was anemic and also had a low sodium of 116. Her urine was benign in the hospital; however, at the [facility] she had a urine done and they placed her on Keflex for the urinary tract infection. She has had 3 occult stools which are positive for blood. No gross blood, just occult positive. Her hemoglobin stabilized at 10. The patient was put in the hospital for pain control and further evaluation. SIGNIFICANT FINDINGS: Urine was negative; however, there is a urine that was done at [facility] which shows urinary tract infection. Her hemoglobin when she came in was 12.4. It is 10.0 on discharge. White count is 9000. Sodium 122 on discharge, her potassium is 4.1, chloride is 91, BUN is 19, creatinine is 0.8. Because of her hyponatremia, I am going to stop the hydrochlorothiazide which is in her Benicar HCT and just give her Benicar plain as a prescription. Hopefully this will help her sodium come up. THERAPY PROVIDED: She was given IV normal saline and pain control with Pamplico. HOSPITAL COURSE: Gradually improved. Belly is better. Diarrhea and nausea are gone. She wants to go home. At this point, she is stable and she does have 2 or 3 medical problems that need to be followed up in the next 2-10 days. We will get an outpatient lab. Hemoglobin and hematocrit and BMP on and Saturday. Have her follow up with her primary doctor, Dr. Gracia next week or his associated, Dr. Meek. We will obtain a GI consult because of her GI bleed and anemia. Dr. Holguin is her GI doctor. We will start her on Protonix 40 mg b.i.d., iron 325 once a day. We will stop Motrin. No aspirin or nonsteroidal anti-inflammatories, no anticoagulants. She can start her physical therapy in 2 days on if she is feeling strong enough. CONDITION ON DISCHARGE: 1. Cephalexin 500 mg t.i.d. for 7 days. 2. Ferrous sulfate 325 once a daily, 30 pills. 3. Benicar 40 mg daily. This is to remove the hydrochlorothiazide. 4. Protonix 40 mg b.i.d. for a month. 5. Continue her home medications of Xanax 0.25 t.i.d. p.r.n. 6. Lexapro 10 mg daily. 7. Pamplico 1/2 pill 5 mg t.i.d. p.r.n. 8. Imuran 50 mg b.i.d. 9. Wellbutrin 100 mg daily. 10. Advair 100/50 one puff b.i.d. 11. Plaquenil 200 mg b.i.d. 12. Singulair 10 mg daily. 13. Amlodipine 5 mg daily. 14. Metoprolol succinate 100 mg daily. 15. Aldactone 25 mg b.i.d. 16. Zanaflex 2 mg at h.s. CC: Nik Gracia, DO [facility]
== END 2018-10-28 18:22 | disposition home or self-care (01) | DRG 641 ==
LOC: ER 15:04 → MEDSURG 19:25
PROVIDERS: ADMIT Internal Medicine; ATTEND Emergency Medicine
DX: E87.1 Hypo-osmolality and hyponatremia (principal); N39.0 Urinary tract infection, site not specified; K29.80 Duodenitis without bleeding; D72.829 Elevated white blood cell count, unspecified; R10.9 Unspecified abdominal pain; G89.29 Other chronic pain; M32.9 Systemic lupus erythematosus, unspecified; I48.91 Unspecified atrial fibrillation; Z79.01 Long term (current) use of anticoagulants; F17.210 Nicotine dependence, cigarettes, uncomplicated
CPT/HCPCS: 71046; 74177; 80048; 80053; 81001; 82272; 82310; 83690; 85027; 87040; 96374; 96375; 99223; 99239; 99285; C9113; J2270; J2405; J7030